=== PATIENT | male | born 1940 | race Caucasian/White ===

== ENCOUNTER 2017-11-15 18:52 | Inpatient (IN) | payer MEDICARE, OTHER ==
[~2017-11-15] VITALS: Ht 170.2 cm; Wt 74.7 kg
[~2017-11-15 18:52] MED LIST: ACET325T11 PO; Z.0.NO CURRENT MEDS
[2017-11-15 19:25] VITALS: BP 146/83; PULSE 97; RESP 16; TEMP 101.6; O2SAT 92
[2017-11-15 19:28] VITALS: RESP 20; O2SAT 96
--- NOTE | 2017-11-15 19:29 | PD ---
HPI Chief Complaint: Altered Mental Status Time Seen by Provider: 19:25 Travel History International Travel<30 days: No Contact w/Intl Traveler<30days: No Traveled to known affect area: No History of Present Illness HPI 77-year-old male patient from assisted with history of dementia, presents to the ER today because assisted stated that he is appearing more disoriented, generally weak. EMS noted that he was febrile with a fever 101 on the ambulance. He currently is disoriented, not answering questions. Arousable , and somewhat agitated nurse's getting IV. Modifying Factors: None Associated Signs & Symptoms: Disorientation, general weakness Risk Factors: Dementia, multiple medical issues PFSH Past Medical History Arthritis: No Asthma: No Autoimmune Disease: No Anxiety: Yes Depression: Yes Heart Rhythm Problems: No Cancer: No Cardiovascular Problems: No High Cholesterol: No Chemotherapy: No Chest Pain: No Congestive Heart Failure: No COPD: No Cerebrovascular Accident: No Diabetes: No Diminished Hearing: No Endocrine: No GERD: No Genitourinary: No Hiatal Hernia: No Hypertension: Yes Immune Disorder: No Kidney Stones: No Musculoskeletal: No Neurologic: Yes Psychiatric: Yes Reproductive: No Respiratory: No Migraines: No Radiation Therapy: No Renal Failure: No Seizures: No Sickle Cell Disease: No Sleep Apnea: No Thyroid Disease: No Ulcer: No Tetanus Vaccination: Unknown Influenza Vaccination: Yes Past Surgical History Surgical History: Unable to Obtain Abdominal Surgery: No AICD: No Arteriovenous Shunt: No Cardiac Surgery: No Ear Surgery: No Endocrine Surgery: No Eye Surgery: No Genitourinary Surgery: No Gynecologic Surgery: No Insulin Pump: No Joint Replacement: No Oral Surgery: No Pacemaker: No Thoracic Surgery: No Social History Alcohol Use: No Tobacco Use: No Substance Use: No Allergies-Medications (Allergen,Severity, Reaction): Coded Allergies: No Known Allergies (Unverified Adverse Reaction, Unknown, 11/15/17) Reported Meds & Prescriptions Reported Meds & Active Scripts Active Reported Glucagen Hypokit Inj Kit (Glucagon (Rdna) Inj Kit) 1 Mg Kit 1 Mg IM ONCE PRN Lexapro (Escitalopram Oxalate) 10 Mg Tab 10 Mg PO DAILY Namzaric (Memantine-Donepezil) 28-10 Mg Cap 1 Cap PO HS Potassium Chloride ER (Potassium Chloride) 10 Meq Cap 10 Meq PO DAILY Aspir-81 (Aspirin) 81 Mg Tabdr Vitamin D3 (Cholecalciferol) 1,000 Unit Tab 1,000 Units PO DAILY Loperamide (Loperamide HCl) 2 Mg Cap 2 Mg PO DIRECTED PRN One capsule after each loose stool. Not to exceed 8 capsules per day. Milk of Magnesia Liq (Magnesium Hydroxide) 400 Mg/5 Ml Susp 30 Ml PO ONCE Tylenol (Acetaminophen) 325 Mg Tab 325 Mg PO Q4H PRN Dulcolax Supp (Bisacodyl) 10 Mg Supp 10 Mg RECTAL DAILY PRN Synthroid (Levothyroxine Sodium) 25 Mcg Tab 25 Mcg PO DAILY Review of Systems ROS Limitations: Altered Mental Status Physical Exam Narrative GENERAL: Well-developed elderly white male patient who is arousable, but lethargic, disoriented. SKIN: Focused skin assessment warm/dry. HEAD: Atraumatic. Normocephalic. EYES: Pupils equal and round. No scleral icterus. No injection or drainage. ENT: No nasal bleeding or discharge. Mucous membranes pink and moist. EARS: Bilateral pinnae and external canals appear within normal limits. Bilateral tympanic membranes without erythema, dullness or perforation. I do not see any signs of fullness or discoloration of the mastoid areas. NECK: Trachea midline. No JVD. CARDIOVASCULAR: Regular rate and rhythm. No murmur appreciated. RESPIRATORY: No accessory muscle use. Clear to auscultation. Breath sounds equal bilaterally. GASTROINTESTINAL: Abdomen soft, non-tender, nondistended. Hepatic and splenic margins not palpable. MUSCULOSKELETAL: No obvious deformities. No clubbing. No cyanosis. No edema. NEUROLOGICAL: Awake and alert. Face is symmetrical. Not following commands. Appears to be able to move all 4 extremities. PSYCHIATRIC: Disoriented; insight and judgment poor. Data Data Last Documented VS Vital Signs Date Time Temp Pulse Resp B/P (MAP) Pulse Ox O2 Delivery O2 Flow Rate FiO2 11/15/17 19:28 20 96 Nasal Cannula 2.00 11/15/17 19:25 101.6 97 146/83 (104) Orders Orders Sepsis Workup Initiated (11/15/17 ) Electrocardiogram (11/15/17 19:25) Complete Blood Count With Diff (11/15/17 19:25) Comprehensive Metabolic Panel (11/15/17 19:25) Lactic Acid Sepsis Protocol (11/15/17 19:25) Magnesium (Mg) (11/15/17 19:25) Lipase (11/15/17 19:25) Ckmb (Isoenzyme) Profile (11/15/17 19:25) Troponin I (11/15/17 19:25) Urinalysis - C+S If Indicated (11/15/17 19:25) Influenzae A/B Antigen (11/15/17 19:25) Blood Culture (11/15/17 19:25) Chest, Single Ap (11/15/17 19:25) Blood Glucose (11/15/17 19:25) Ecg Monitoring (11/15/17 19:25) Iv Access Insert/Monitor (11/15/17 19:25) Oximetry (11/15/17 19:25) Oxygen Administration (11/15/17 19:25) Ct Brain W/O Iv Contrast(Rout) (11/15/17 19:25) Urine Culture (11/15/17 19:35) Vancomycin Inj (Vancomycin Inj) (11/15/17 20:02) Piperacil-Tazo 4.5 Gm Premix (Zosyn 4.5 (11/15/17 20:02) Sodium Chlor 0.9% 1000 Ml Inj (Ns 1000 M (11/15/17 20:30) Labs Laboratory Tests Test 11/15/17 19:20 11/15/17 19:35 White Blood Count 9.5 TH/MM3 Red Blood Count 5.09 MIL/MM3 Hemoglobin 15.5 GM/DL Hematocrit 45.8 % Mean Corpuscular Volume 90.0 FL Mean Corpuscular Hemoglobin 30.5 PG Mean Corpuscular Hemoglobin Concent 33.9 % Red Cell Distribution Width 13.8 % Platelet Count 153 TH/MM3 Mean Platelet Volume 7.8 FL Neutrophils (%) (Auto) 90.1 % Lymphocytes (%) (Auto) 4.8 % Monocytes (%) (Auto) 4.7 % Eosinophils (%) (Auto) 0.0 % Basophils (%) (Auto) 0.4 % Neutrophils # (Auto) 8.6 TH/MM3 Lymphocytes # (Auto) 0.5 TH/MM3 Monocytes # (Auto) 0.4 TH/MM3 Eosinophils # (Auto) 0.0 TH/MM3 Basophils # (Auto) 0.0 TH/MM3 CBC Comment DIFF FINAL Differential Comment Blood Urea Nitrogen 22 MG/DL Creatinine 1.00 MG/DL Random Glucose 112 MG/DL Total Protein 7.1 GM/DL Albumin 3.5 GM/DL Calcium Level 8.4 MG/DL Magnesium Level 1.9 MG/DL Alkaline Phosphatase 107 U/L Aspartate Amino Transf (AST/SGOT) 20 U/L Alanine Aminotransferase (ALT/SGPT) 17 U/L Total Bilirubin 0.7 MG/DL Sodium Level 135 MEQ/L Potassium Level 3.7 MEQ/L Chloride Level 102 MEQ/L Carbon Dioxide Level 26.8 MEQ/L Anion Gap 6 MEQ/L Estimat Glomerular Filtration Rate 72 ML/MIN Lactic Acid Level 1.2 mmol/L Total Creatine Kinase 37 U/L Troponin I 0.02 NG/ML Lipase 53 U/L Urine Color YELLOW Urine Turbidity HAZY Urine pH 5.5 Urine Specific [place] 1.021 Urine Protein 30 mg/dL Urine Glucose (UA) NEG mg/dL Urine Ketones 40 mg/dL Urine Occult Blood MOD Urine Nitrite NEG Urine Bilirubin NEG Urine Urobilinogen LESS THAN 2.0 MG/DL Urine Leukocyte Esterase NEG Urine RBC 12 /hpf Urine WBC 3 /hpf Urine Squamous Epithelial Cells <1 /hpf Urine Bacteria OCC /hpf Urine Hyaline Casts 3 /lpf Urine Mucus FEW /lpf Microscopic Urinalysis Comment CATH-CULTURE IND MDM Medical Decision Making Medical Screen Exam Complete: Yes Emergency Medical Condition: Yes Medical Record Reviewed: Yes Interpretation(s) EKG shows normal sinus rhythm at a rate 90 bpm with no signs of acute ST-T changes. Laboratory Tests Test 11/15/17 19:20 11/15/17 19:35 Neutrophils (%) (Auto) 90.1 % (16.0-70.0) Lymphocytes (%) (Auto) 4.8 % (9.0-44.0) Neutrophils # (Auto) 8.6 TH/MM3 (1.8-7.7) Lymphocytes # (Auto) 0.5 TH/MM3 (1.0-4.8) Blood Urea Nitrogen 22 MG/DL (7-18) Random Glucose 112 MG/DL (74-106) Calcium Level 8.4 MG/DL (8.5-10.1) Sodium Level 135 MEQ/L (136-145) Estimat Glomerular Filtration Rate 72 ML/MIN (>89) Total Creatine Kinase 37 U/L (39-308) Lipase 53 U/L (73-393) Urine Turbidity HAZY (CLEAR) Urine Protein 30 mg/dL (NEG-TRACE) Urine Ketones 40 mg/dL (NEG) Urine Occult Blood MOD (NEG) Urine RBC 12 /hpf (0-3) Urine Bacteria OCC /hpf (NONE) Urine Mucus FEW /lpf (OCC) Last [address] 11/15/171924 Signed Impressions: Service Date/Time: Wednesday, November 15, 2017 19:47 - CONCLUSION: 1. No acute intracranial abnormality demonstrated. 2. Atrophy and chronic white matter changes. 3. Possible mastoiditis on the right in the proper clinical setting. Dayne Chen MD Chest X-Ray 11/15/171924 Signed Impressions: Service Date/Time: Wednesday, November 15, 2017 19:39 - CONCLUSION: No acute cardiopulmonary disease demonstrated. Tortuous, potentially aneurysmal thoracic aorta. Dayne Chen MD Differential Diagnosis Fevers, altered mental status: Sepsis versus pneumonia versus dehydration versus acute intracranial processes versus metabolic issues Narrative Course Chest x-ray did not show pneumonia. Influenza testing is negative. CT scan of the brain did not show any signs of acute cranial processes although they did note some fullness in the left mastoid. On evaluation, I do not see any signs of infection in that area. Empiric IV antibiotics were initiated after cultures were drawn. I do not see any significant skin lesions that could be causing sepsis. At this point, my plan would be to admit the patient for further evaluation and treatment. Case is discussed with Dr. Almendarez for admission. Diagnosis Primary Impression: Altered mental status Additional Impression: Sepsis Admitting Information Admitting Physician Requests: Admit Jake Walker MD Nov 15, 2017 19:29
[2017-11-15 19:54] LABS: AUTOMATED NEUTROPHIL # 8.6 TH/MM3 (1.8-7.7); BASOPHIL % 0.4 % (0.0-2.0); HEMATOCRIT 45.8 % (39.0-51.0); HEMOGLOBIN 15.5 GM/DL (13.0-17.0); LYMPH % 4.8 % (9.0-44.0); LYMPHOCYTE # 0.5 TH/MM3 (1.0-4.8); MEAN CORPUSCULAR HEMOGLOBIN 30.5 PG (27.0-34.0); MEAN CORPUSCULAR HGB CONC 33.9 % (32.0-36.0); MEAN PLATELET VOLUME 7.8 FL (7.0-11.0); MONO % 4.7 % (0.0-8.0); MONOCYTE # 0.4 TH/MM3 (0-0.9); NEUT % 90.1 % (16.0-70.0); PLATELET COUNT 153 TH/MM3 (150-450); RED BLOOD COUNT 5.09 MIL/MM3 (4.50-5.90); RED CELL DISTRIBUTION WIDTH 13.8 % (11.6-17.2); WHITE BLOOD COUNT 9.5 TH/MM3 (4.0-11.0)
--- NOTE | 2017-11-15 19:55 | RADRPT ---
EXAM DATE/TIME: 11/15/2017 19:39 [facility] COMPARISON: Report only CHEST SINGLE AP, March 09, 2013, 15:32. INDICATIONS : Fever MEDICAL HISTORY : None. SURGICAL HISTORY : None. ENCOUNTER: Initial ACUITY: 1 day PAIN SCORE: Non-responsive. LOCATION: chest FINDINGS: No infiltrate, effusion or pneumothorax. Heart size upper limits of normal. Very tortuous thoracic ao rta noted, potentially mildly aneurysmal. CONCLUSION: No acute cardiopulmonary disease demonstrated. Tortuous, potentially aneurysmal thoracic aorta. Dayne Chen MD on November 15, 2017 at 19:51 Board Certified Radiologist. This report was verified electronically.
[2017-11-15 19:56] LABS: BACTERIA, URINE OCC /hpf; BILIRUBIN, URINE NEG (NEG); BLOOD, URINE MOD (NEG); GLUCOSE,URINE NEG (NEG); HYALINE CAST, URINE 3 /lpf (RARE); KETONE, URINE 40 mg/dL (NEG); MUCUS URINE FEW /lpf (OCC); NITRITE,URINE NEG (NEG); PH, URINE 5.5 (5.0-8.5); SQUAMOUS EPITHELIAL CELL URINE <1 /hpf (0-5); URINE COLOR YELLOW (YELLW/STRAW); URINE LEUKOCYTE ESTERASE NEG (NEG)
[2017-11-15] MEDS ORDERED: VANCOMYCIN INJ 1,000 MG in SODIUM CHLOR 0.9% 250 ML INJ 250 ML IV STA (20:02)
[2017-11-15] MEDS ORDERED: PIPERACIL-TAZO 4.5 GM PREMIX 100 ML IV STA (20:02)
[2017-11-15 20:05] LABS: ALBUMIN 3.5 GM/DL (3.4-5.0); AST (GOT) 20 U/L (15-37); BICARBONATE 26.8 MEQ/L (21.0-32.0); BLOOD UREA NITROGEN 22 MG/DL (7-18); CALCIUM 8.4 MG/DL (8.5-10.1); CHLORIDE 102 MEQ/L (98-107); GLOMERULAR FILTRATION RATE 72 ML/MIN (>89); GLUCOSE,RANDOM 112 MG/DL (74-106); LIPASE 53 U/L (73-393); MAGNESIUM 1.9 MG/DL (1.5-2.5); SODIUM (NA) 135 MEQ/L (136-145)
--- NOTE | 2017-11-15 20:05 | RADRPT ---
EXAM DATE/TIME: 11/15/2017 19:47 [facility] COMPARISON: Report only CT BRAIN W/O CONTRAST, March 09, 2013, 16:34. INDICATIONS : Altered mental status. RADIATION DOSE: 56.35 CTDIvol (mGy) MEDICAL HISTORY : Hypertension. SURGICAL HISTORY : None. ENCOUNTER: Initial ACUITY: 1 day PAIN SCALE: Non-responsive LOCATION: Bilateral head TECHNIQUE: Multiple contiguous axial images were obtained of the head. Using automated exposure control and adj ustment of the mA and/or kV according to patient size, radiation dose was kept as low as reasonably a chievable to obtain optimal diagnostic quality images. DICOM format image data is available electro nically for review and comparison. FINDINGS: CEREBRUM: The ventricles are normal for age. No evidence of midline shift, mass lesion, hemorrhage or acute in farction. No extra-axial fluid collections are seen. Atrophy and chronic white matter changes are no pavithra. POSTERIOR FOSSA: The cerebellum and brainstem are intact. The 4th ventricle is midline. The cerebellopontine angle i s unremarkable. EXTRACRANIAL: Opacified right mastoid air cells. SKULL: The calvaria is intact. No evidence of skull fracture. CONCLUSION: 1. No acute intracranial abnormality demonstrated. 2. Atrophy and chronic white matter changes. 3. Possible mastoiditis on the right in the proper clinical setting. Dayne Chen MD on November 15, 2017 at 20:02 Board Certified Radiologist. This report was verified electronically.
[2017-11-15 20:06] LABS: ALT (GPT) 17 U/L (12-78)
[2017-11-15 20:10] LABS: ALKALINE PHOSPHATASE 107 U/L (45-117); TOTAL BILIRUBIN ADULT 0.7 MG/DL (0.2-1.0); TOTAL PROTEIN 7.1 GM/DL (6.4-8.2); TROPONIN I 0.02 NG/ML (0.02-0.05)
[2017-11-15] MEDS ORDERED: SODIUM CHLOR 0.9% 1000 ML INJ 1,000 ML IV ONE (20:30)
[2017-11-15] MEDS ORDERED: ASPI81TA81 (20:38)
[2017-11-15] MEDS ORDERED: GLUCINJ IM (20:38)
[2017-11-15] MEDS ORDERED: SYNT25TA PO (20:38)
[2017-11-15] MEDS ORDERED: LOPE2CAP PO (20:38)
[2017-11-15] MEDS ORDERED: VITA100018 PO (20:38)
[2017-11-15] MEDS ORDERED: MEMA1CAP2 PO (20:38)
[2017-11-15] MEDS ORDERED: POTA10CA PO (20:38)
[2017-11-15] MEDS ORDERED: DULC10SU3 RECTAL (20:38)
[2017-11-15] MEDS ORDERED: LEXA10TA PO (20:38)
[2017-11-15] MEDS ORDERED: MILKSUS PO (20:38)
[2017-11-15] MEDS ORDERED: TYLE325T PO (20:38)
[2017-11-15] MEDS ORDERED: ACETAMINOPHEN 325 MG TAB PO PRN (20:45)
[2017-11-15] MEDS ORDERED: MAGNESIUM HYDROXIDE SUSP 30 ML CUP PO PRN (20:45)
[2017-11-15] MEDS ORDERED: SENNOSIDES 8.6 MG TAB PO PRN (20:45)
[2017-11-15] MEDS ORDERED: BISACODYL 10 MG SUPP RECTAL PRN (20:45)
[2017-11-15] MEDS ORDERED: SODIUM CHLORIDE 0.9% FLUSH 10 ML FLUSH IV FLUSH PRN (20:45)
[2017-11-15] MEDS ORDERED: LACTULOSE SYRUP 20 GM/30 ML CUP PO PRN (20:45)
[2017-11-15] MEDS ORDERED: ONDANSETRON HCL 4 MG/2 ML VIAL IVP PRN (20:45)
[2017-11-15] MEDS ORDERED: ACETAMINOPHEN/HYDROcodone 325 MG/5 MG TAB PO PRN (20:45)
[2017-11-15] MEDS ORDERED: ACETAMINOPHEN/HYDROcodone 325 MG/10 MG TAB PO PRN (20:45)
[2017-11-15] MEDS ORDERED: Vancomycin Consult Pharmacy 1 EA OTHER SCH (20:45)
--- NOTE | 2017-11-15 20:45 | HHI.HP ---
[facility] Unknown Admission Diagnosis sepsis/altered mental status Diagnoses: (1) Sepsis Diagnosis: Principal (2) UTI (urinary tract infection) Diagnosis: Principal (3) Encephalopathy Diagnosis: Principal (4) Dementia Diagnosis: Principal (5) DNR (do not resuscitate) Travel History International Travel<30 Days: No Contact w/Intl Traveler <30 Da: No Traveled to Known Affected Are: No History of Present Illness This is a 78-year-old DNR male with a PMH of Anxiety, Depression, HTN and Dementia who was sent to the ER from SNF secondary to AMS and confusion. Pt unable to provide history due to dementia/AMS, history obtained from records. Per report, pt noted to have Temp 101 by EMS. On arrival, BP 146/83, HR 97, O2 sat 92% on RA, Temp 101.6. CBC unremarkable except for elevated neutrophil count. Chemistry at baseline. Lactic Acid normal. UA positive for bacteriuria and hematuria. CXR with no acute findings. CT Head with no acute intracranial abnormalities, possible mastoiditis. S/p Vanc/Zosyn and Blood Cultures in ER. Review of Systems Except as stated in HPI: all other systems reviewed are Neg ROS: Unable to obtain secondary to AMS and dementia. Past Family Social History Past Medical History PMH: Anxiety, Depression, HTN and Dementia Past Surgical History PAST SURGICAL HISTORY: Unknown Allergies: Coded Allergies: No Known Allergies (Unverified Allergy, Unknown, 11/15/17) Family History PAST FAMILY HISTORY: Reviewed. No h/o DM or CAD Social History PAST SOCIAL HISTORY: Negative for alcohol, tobacco or drugs. Physical Exam Vital Signs Vital Signs Date Time Temp Pulse Resp B/P (MAP) Pulse Ox O2 Delivery O2 Flow Rate FiO2 11/15/17 19:28 20 96 Nasal Cannula 2.00 11/15/17 19:28 92 Room Air 11/15/17 19:25 101.6 97 16 146/83 (104) 92 11/15/17 19:22 16 92 Room Air Physical Exam PE: GENERAL: Elderly white male in no acute distress. Lethargic, confused. Opens eyes to name HEENT: PERRMYLA, EOMI. No scleral icterus or conjunctival pallor. No lid lag or facial droop. CARDIOVASCULAR: Regular rate and rhythm. No obvious murmurs to auscultation. No chest tenderness to palpation. RESPIRATORY: No obvious rhonchi or wheezing. Clear to auscultation. Breath sounds equal bilaterally. GASTROINTESTINAL: Abdomen soft, non-tender, nondistended. BS normal. MUSCULOSKELETAL: Extremities without clubbing, cyanosis, or edema. No obvious deformities. NEUROLOGICAL: Lethargic, confused. No focal neurologic deficits. Moving both upper and lower extremities spontaneously. Laboratory Laboratory Tests Test 11/15/17 19:20 11/15/17 19:35 White Blood Count 9.5 Red Blood Count 5.09 Hemoglobin 15.5 Hematocrit 45.8 Mean Corpuscular Volume 90.0 Mean Corpuscular Hemoglobin 30.5 Mean Corpuscular Hemoglobin Concent 33.9 Red Cell Distribution Width 13.8 Platelet Count 153 Mean Platelet Volume 7.8 Neutrophils (%) (Auto) 90.1 Lymphocytes (%) (Auto) 4.8 Monocytes (%) (Auto) 4.7 Eosinophils (%) (Auto) 0.0 Basophils (%) (Auto) 0.4 Neutrophils # (Auto) 8.6 Lymphocytes # (Auto) 0.5 Monocytes # (Auto) 0.4 Eosinophils # (Auto) 0.0 Basophils # (Auto) 0.0 CBC Comment DIFF FINAL Differential Comment Blood Urea Nitrogen 22 Creatinine 1.00 Random Glucose 112 Total Protein 7.1 Albumin 3.5 Calcium Level 8.4 Magnesium Level 1.9 Alkaline Phosphatase 107 Aspartate Amino Transf (AST/SGOT) 20 Alanine Aminotransferase (ALT/SGPT) 17 Total Bilirubin 0.7 Sodium Level 135 Potassium Level 3.7 Chloride Level 102 Carbon Dioxide Level 26.8 Anion Gap 6 Estimat Glomerular Filtration Rate 72 Lactic Acid Level 1.2 Total Creatine Kinase 37 Troponin I 0.02 Lipase 53 Urine Color YELLOW Urine Turbidity HAZY Urine pH 5.5 Urine Specific [place] 1.021 Urine Protein 30 Urine Glucose (UA) NEG Urine Ketones 40 Urine Occult Blood MOD Urine Nitrite NEG Urine Bilirubin NEG Urine Urobilinogen LESS THAN 2.0 Urine Leukocyte Esterase NEG Urine RBC 12 Urine WBC 3 Urine Squamous Epithelial Cells <1 Urine Bacteria OCC Urine Hyaline Casts 3 Urine Mucus FEW Microscopic Urinalysis Comment CATH-CULTURE IND Date/Time Source Procedure Growth Status 11/15/17 19:30 Blood Peripheral Aerobic Blood Culture Pending Received 11/15/17 19:30 Blood Peripheral Anaerobic Blood Culture Pending Received 11/15/17 19:30 Nasal Washing Influenza Types A,B Antigen (DEMIAN) - Final NEGATIVE FOR FLU A AND B ANTIGEN.... Complete 11/15/17 19:35 Urine Catheterized Urine Urine Culture Pending Received Result Diagram: 11/15/17191911/15/171919 Caprini VTE Risk Assessment Caprini VTE Risk Assessment: No/Low Risk (score <= 1) Caprini Risk Assessment Model Point Value = 1 Point Value = 2 Point Value = 3 Point Value = 5 Age 41-60 Minor surgery BMI > 25 kg/m2 Swollen legs Varicose veins or History of unexplained or recurrent spontaneous Oral contraceptives or hormone replacement Sepsis (< 1 month) Serious lung disease, including pneumonia (< 1 month) Abnormal pulmonary function Acute myocardial infarction Congestive heart failure (< 1 month) History of inflammatory bowel disease Medical patient at bed rest Age 61-74 Arthroscopic surgery Major open surgery (> 45 min) Laparoscopic surgery (> 45 min) Malignancy Confined to bed (> 72 hours) Immobilizing plaster cast Central venous access Age >= 75 History of VTE Family history of VTE Factor V Leiden Prothrombin [id number] Lupus anticoagulant Anticardiolipin antibodies Elevated serum homocysteine Heparin-induced thrombocytopenia Other congenital or acquired thrombophilia Stroke (< 1 month) Elective arthroplasty Hip, pelvis, or leg fracture Acute spinal cord injury (< 1 month) Prophylaxis Regimen Total Risk Factor Score Risk Level Prophylaxis Regimen 0-1 Low Early ambulation 2 Moderate Order ONE of the following: *Sequential Compression Device (SCD) *Heparin 5000 units SQ BID 3-4 Higher Order ONE of the following medications: *Heparin 5000 units SQ TID *Enoxaparin/Lovenox 40 mg SQ daily (WT < 150 kg, CrCl > 30 mL/min) *Enoxaparin/Lovenox 30 mg SQ daily (WT < 150 kg, CrCl > 10-29 mL/min) *Enoxaparin/Lovenox 30 mg SQ BID (WT < 150 kg, CrCl > 30 mL/min) AND/OR *Sequential Compression Device (SCD) 5 or more Highest Order ONE of the following medications: *Heparin 5000 units SQ TID (Preferred with Epidurals) *Enoxaparin/Lovenox 40 mg SQ daily (WT < 150 kg, CrCl > 30 mL/min) *Enoxaparin/Lovenox 30 mg SQ daily (WT < 150 kg, CrCl > 10-29 mL/min) *Enoxaparin/Lovenox 30 mg SQ BID (WT < 150 kg, CrCl > 30 mL/min) AND *Sequential Compression Device (SCD) Assessment and Plan Problem List: (1) Sepsis ICD Code: A41.9 - Sepsis, unspecified organism Status: Acute (2) UTI (urinary tract infection) ICD Code: N39.0 - Urinary tract infection, site not specified (3) Dementia ICD Code: F03.90 - Unspecified dementia without behavioral disturbance (4) Encephalopathy ICD Code: G93.40 - Encephalopathy, unspecified (5) DNR (do not resuscitate) ICD Code: Z66 - Do not resuscitate Assessment and Plan A/P: 1. Sepsis: Temp 101.6, HR 97, Source-UTI. S/p Vanc/Zosyn, Blood Cultures in ER. Continue w/ IV Abx, follow up cultures, IVF for hydration. Lactic Acid normal. CXR w/ no acute findings, images reviewed by me. 2. UTI: U/a w/ mild bacteriuria/hematuria, presumably source of infection. Continue w/ IV Abx, follow urine/blood cultures. 3. Encephalopathy: Likely combination of underlying dementia w/ acute infection/sepsis. CT Head w/ no acute intracranial findings, images reviewed by me. Neuro Checks. 4. Dementia: Resume home Lexapro, Namzaric. Neuro checks as above. PT for eval/tx. 5. DNR: Code Status confirmed and in chart, order placed. 6. DVT Prophylaxis: SCD/Teds. 7. Social work for d/c planning as needed. 8. Case discussed w/ ER physician, labs/records/imaging reviewed by me. Physician Certification 2 Midnight Certification Type: Admission for Inpatient Services Order for Inpatient Services The services are ordered in accordance with Medicare regulations or non- Medicare payer requirements, as applicable. In the case of services not specified as inpatient-only, they are appropriately provided as inpatient services in accordance with the 2-midnight benchmark. Estimated LOS (days): 2 days is the estimated time the patient will need to remain in the hospital, assuming treatment plan goals are met and no additional complications. Post-Hospital Plan: Not yet determined Sanaz Almendarez MD Nov 15, 2017 20:44
[2017-11-15] MEDS ORDERED: NON-FORMULARY DRUG (Memantine-Donepezil (Namzaric) 1 CAP) PO SCH (21:00)
[2017-11-15] MEDS: SODIUM CHLORIDE 0.9% FLUSH 10 ML FLUSH IV FLUSH SCH (22:00)
[2017-11-15] MEDS: DOCUSATE SODIUM 50 MG/SENNA 8.6 MG TAB PO SCH (22:00)
[2017-11-15] MEDS: SODIUM CHLOR 0.9% 1000 ML INJ 1,000 ML IV SCH (22:01)
[2017-11-16] VITALS: BP 133/93; PULSE 80; RESP 18; TEMP 98; O2SAT 97
[2017-11-16] MEDS: LEVOTHYROXINE SODIUM 25 MCG TAB PO SCH (06:12)
[2017-11-16] MEDS: SODIUM CHLOR 0.9% 1000 ML INJ 1,000 ML IV SCH ×2 (06:13→18:15)
[2017-11-16 07:35] LABS: AUTOMATED NEUTROPHIL # 4.7 TH/MM3 (1.8-7.7); BASOPHIL % 0.3 % (0.0-2.0); EOSINOPHIL % 0.2 % (0.0-4.0); HEMATOCRIT 42.3 % (39.0-51.0); HEMOGLOBIN 11.9 GM/DL (13.0-17.0); LYMPH % 10.7 % (9.0-44.0); LYMPHOCYTE # 0.6 TH/MM3 (1.0-4.8); MEAN CELL VOLUME 90.9 FL (80.0-100.0); MEAN CORPUSCULAR HEMOGLOBIN 25.5 PG (27.0-34.0); MONO % 7.4 % (0.0-8.0); MONOCYTE # 0.4 TH/MM3 (0-0.9); NEUT % 81.4 % (16.0-70.0); PLATELET COUNT 98 TH/MM3 (150-450); RED BLOOD COUNT 4.66 MIL/MM3 (4.50-5.90); RED CELL DISTRIBUTION WIDTH 13.6 % (11.6-17.2); WHITE BLOOD COUNT 5.8 TH/MM3 (4.0-11.0)
[2017-11-16 08:00] VITALS: BP 119/68; PULSE 85; RESP 18; TEMP 99; O2SAT 90
[2017-11-16] MEDS: VANCOMYCIN 1,000 MG/NS 250 ML IV SCH ×4 (08:00→23:12)
[2017-11-16] MEDS: CEFEPIME INJ 1,000 MG in SODIUM CHLORIDE 0.9% INJ 100 ML IV SCH ×2 (09:21→22:14)
[2017-11-16] MEDS: DOCUSATE SODIUM 50 MG/SENNA 8.6 MG TAB PO SCH ×2 (09:21→22:14)
[2017-11-16] MEDS: ESCITALOPRAM OXALATE 10 MG TAB PO SCH (09:21)
[2017-11-16] MEDS: SODIUM CHLORIDE 0.9% FLUSH 10 ML FLUSH IV FLUSH SCH ×2 (09:22→21:00)
[2017-11-16 09:46] LABS: BANDS 6 % (0-6); LYMPHOCYTES 6 % (9-44); MONOCYTES 7 % (0-8); POLYS (SEG NEUTROPHILS) 81 % (16-70)
[2017-11-16 10:37] LABS: ALT (GPT) 15 U/L (12-78); AST (GOT) 22 U/L (15-37); BLOOD UREA NITROGEN 23 MG/DL (7-18); CALCIUM 7.9 MG/DL (8.5-10.1); CHLORIDE 103 MEQ/L (98-107); CREATININE 0.91 MG/DL (0.60-1.30); GLOMERULAR FILTRATION RATE 81 ML/MIN (>89); GLUCOSE,RANDOM 90 MG/DL (74-106); SODIUM (NA) 138 MEQ/L (136-145)
[2017-11-16 10:40] LABS: ALKALINE PHOSPHATASE 89 U/L (45-117); TOTAL BILIRUBIN ADULT 0.8 MG/DL (0.2-1.0); TOTAL PROTEIN 6.7 GM/DL (6.4-8.2)
[2017-11-16 12:00] VITALS: BP 105/61; PULSE 79; RESP 18; TEMP 99; O2SAT 91
[2017-11-16 16:00] VITALS: BP 118/64; PULSE 76; RESP 18; TEMP 98.9; O2SAT 92
--- NOTE | 2017-11-16 17:11 | HHI.PR ---
Subjective Remarks Patient has no complaints. Awake. Denies cp/sob. afebrile. Objective Vitals Vital Signs Date Time Temp Pulse Resp B/P (MAP) Pulse Ox O2 Delivery O2 Flow Rate FiO2 11/16/17 12:00 99.0 79 18 105/61 (76) 91 11/16/17 08:00 99.0 85 18 119/68 (85) 90 11/16/17 00:00 98.0 80 18 133/93 (106) 97 11/15/17 22:20 Nasal Cannula 3.00 11/15/17 19:28 20 96 Nasal Cannula 2.00 11/15/17 19:28 92 Room Air 11/15/17 19:25 101.6 97 16 146/83 (104) 92 11/15/17 19:22 16 92 Room Air I/O 11/15/17 11/15/17 11/15/17 11/16/17 11/16/17 11/16/17 06:59 14:59 22:59 06:59 14:59 22:59 Intake Total 1120 ml Output Total 300 ml Balance 820 ml Intake Oral 120 ml IV Total 1000 ml Output Urine Total 300 ml # Bowel Movements 0 Result Diagram: 11/16/17 0646 11/16/17 0945 Imaging Last Impressions Head CT 11/15/171924 Signed Impressions: Service Date/Time: Wednesday, November 15, 2017 19:47 - CONCLUSION: 1. No acute intracranial abnormality demonstrated. 2. Atrophy and chronic white matter changes. 3. Possible mastoiditis on the right in the proper clinical setting. Dayne Chen MD Chest X-Ray 11/15/171924 Signed Impressions: Service Date/Time: Wednesday, November 15, 2017 19:39 - CONCLUSION: No acute cardiopulmonary disease demonstrated. Tortuous, potentially aneurysmal thoracic aorta. Dayne Chen MD Objective Remarks GENERAL: Elderly white male in no acute distress. Lethargic, confused. Opens eyes to name HEENT: PERRMYLA, EOMI. No scleral icterus or conjunctival pallor. No lid lag or facial droop. CARDIOVASCULAR: Regular rate and rhythm. No obvious murmurs to auscultation. No chest tenderness to palpation. RESPIRATORY: No obvious rhonchi or wheezing. Clear to auscultation. Breath sounds equal bilaterally. GASTROINTESTINAL: Abdomen soft, non-tender, nondistended. BS normal. MUSCULOSKELETAL: Extremities without clubbing, cyanosis, or edema. No obvious deformities. NEUROLOGICAL: awake and alert x2. No focal neurologic deficits. Moving both upper and lower extremities spontaneously. Medications and IVs Current Medications Medications (Trade) Dose Ordered Sig/Marcella Route Start Time Stop Time Status Last Admin Pharmacy Profile Note 0 ml @ 0 mls/hr UNSCH OTHER 11/15/17 20:45 Cefepime HCl 1000 mg/Sodium Chloride 100 ml @ 200 mls/hr Q12H IV 11/16/17 09:00 11/16/17 09:21 Sodium Chloride 1,000 ml @ 100 mls/hr Q10H IV 11/15/17 21:00 11/16/17 06:13 (NS Flush) 2 ml UNSCH PRN IV FLUSH 11/15/17 20:45 (NS Flush) 2 ml BID IV FLUSH 11/15/17 21:00 11/16/17 09:22 (Zofran Inj) 4 mg Q6H PRN IVP 11/15/17 20:45 (Tylenol) 650 mg Q6H PRN PO 11/15/17 20:45 ([place] 5-325 Mg) 1 tab Q4H PRN PO 11/15/17 20:45 ([place] 10-325 Mg) 1 tab Q4H PRN PO 11/15/17 20:45 (Irma-Colace) 1 tab BID PO 11/15/17 21:00 11/16/17 09:21 (Milk Of Magnesia Liq) 30 ml Q12H PRN PO 11/15/17 20:45 (Senokot) 17.2 mg Q12H PRN PO 11/15/17 20:45 (Dulcolax Supp) 10 mg DAILY PRN RECTAL 11/15/17 20:45 (Lactulose Liq) 30 ml DAILY PRN PO 11/15/17 20:45 (Lexapro) 10 mg DAILY PO 11/16/17 09:00 11/16/17 09:21 (Synthroid) 25 mcg DAILY@0600 PO 11/16/17 06:00 11/16/17 06:12 Patient Own Medication PT OWN MED: NAMZA... HS PO 11/16/17 21:00 Future Hold Vancomycin HCl 1000 mg/Sodium Chloride 250 ml @ 250 mls/hr Q12H IV 11/16/17 08:00 11/16/17 08:00 Miscellaneous Information SPECIFIC LAB TO BE DRAWN:[facility] DATE TO BE DRLora. ONCE ONCE .XX 11/17/17 07:45 11/17/17 07:46 Urinary Catheter: Yes Assessment to: Remove A/P Problem List: (1) Sepsis ICD Code: A41.9 - Sepsis, unspecified organism Status: Acute (2) UTI (urinary tract infection) ICD Code: N39.0 - Urinary tract infection, site not specified (3) Dementia ICD Code: F03.90 - Unspecified dementia without behavioral disturbance (4) Encephalopathy ICD Code: G93.40 - Encephalopathy, unspecified (5) DNR (do not resuscitate) ICD Code: Z66 - Do not resuscitate Assessment and Plan 1. Sepsis: Temp 101.6, HR 97, Source-UTI. S/p Vanc/Zosyn, Blood Cultures in ER. Continue w/ IV Abx, follow up cultures, IVF for hydration. Lactic Acid normal. CXR w/ no acute findings, images reviewed by me. 11/16 sepsis clinically improving with improving fever, resolving tachycardia. Continue IV cefepime, discontinue vancomycin IV. 2. UTI: U/a w/ mild bacteriuria/hematuria, presumably source of infection. Continue w/ IV Abx, follow urine/blood cultures. 11/16 blood cultures negative 1, urine cultures no growth in 24 hours. Discontinue IV vancomycin and continue IV cefepime. 3. Encephalopathy: Likely combination of underlying dementia w/ acute infection/sepsis. CT Head w/ no acute intracranial findings, images reviewed by me. Neuro Checks. 11/16 encephalopathy improving. The patient is awake and answer questions. The patient however is oriented to place and time not to person. Continue to monitor neuro checks. 4. Dementia: Resume home Lexapro, Namzaric. Neuro checks as above. PT for eval/tx. 5. DNR: Code Status confirmed and in chart, order placed. 6. DVT Prophylaxis: SCD/Teds. 7. Social work for d/c planning as needed. Remove Carson catheter. Discharge Planning Possible discharge in a.m. pending clinical improvement. Сергей Goldberg MD Nov 16, 2017 17:11
--- NOTE | 2017-11-16 18:35 | EKG ---
Date Performed: 11/15/2017 Time Performed: 19:28:03 PTAGE: 77 years EKG: Sinus rhythm WITH OCCASIONAL SUPRAVENTRICULAR PREMATURE COMPLEXES Light R wave transition. LEFT ANTERIOR FASCICUL AR BLOCK ABNORMAL ECG PREVIOUS TRACING : 03/09/2013 14.50 DOCTOR: Yunier Nieves Interpretating Date/Time 11/16/2017 18:34:45
[2017-11-16 20:00] VITALS: BP 112/66; PULSE 66; PULSE 72; RESP 16; TEMP 98.5; O2SAT 92
[2017-11-16] MEDS ORDERED: [UNRECOGNIZED DRUG - MIXTURE] PO SCH (21:00)
[2017-11-17] VITALS: BP 109/72; PULSE 66; PULSE 67; RESP 16; TEMP 96.8; O2SAT 92
[2017-11-17 04:00] VITALS: BP 131/84; PULSE 84; RESP 16; TEMP 98.8; O2SAT 92
[2017-11-17 06:29] LABS: HEMATOCRIT 41.8 % (39.0-51.0); HEMOGLOBIN 14.3 GM/DL (13.0-17.0); MEAN CELL VOLUME 89.5 FL (80.0-100.0); MEAN CORPUSCULAR HEMOGLOBIN 30.6 PG (27.0-34.0); MEAN CORPUSCULAR HGB CONC 34.2 % (32.0-36.0); MEAN PLATELET VOLUME 7.8 FL (7.0-11.0); PLATELET COUNT 123 TH/MM3 (150-450); RED BLOOD COUNT 4.68 MIL/MM3 (4.50-5.90); RED CELL DISTRIBUTION WIDTH 13.5 % (11.6-17.2); WHITE BLOOD COUNT 6.4 TH/MM3 (4.0-11.0)
[2017-11-17] MEDS: LEVOTHYROXINE SODIUM 25 MCG TAB PO SCH (06:31)
[2017-11-17] MEDS: SODIUM CHLOR 0.9% 1000 ML INJ 1,000 ML IV SCH (06:32)
[2017-11-17 06:58] LABS: CALCIUM 7.6 MG/DL (8.5-10.1); CREATININE 0.79 MG/DL (0.60-1.30)
[2017-11-17] MEDS ORDERED: PHARMACY ORDERED LAB ONE (07:45)
[2017-11-17 08:00] VITALS: BP 128/83; PULSE 87; RESP 17; TEMP 96.9; O2SAT 93
[2017-11-17] MEDS: SODIUM CHLORIDE 0.9% FLUSH 10 ML FLUSH IV FLUSH SCH (08:12)
[2017-11-17] MEDS: ESCITALOPRAM OXALATE 10 MG TAB PO SCH (08:42)
[2017-11-17] MEDS: DOCUSATE SODIUM 50 MG/SENNA 8.6 MG TAB PO SCH (08:42)
[2017-11-17] MEDS: CEFEPIME INJ 1,000 MG in SODIUM CHLORIDE 0.9% INJ 100 ML IV SCH (08:42)
[2017-11-17] MEDS: VANCOMYCIN 1,000 MG/NS 250 ML IV SCH ×2 (08:45)
[2017-11-17] MEDS ORDERED: POTASSIUM CHLORIDE 10 MEQ CONTROLLED RELEASE TAB PO ONE (09:15)
[2017-11-17] MEDS ORDERED: POTASSIUM CHLORIDE 20 MEQ CONTROLLED RELEASE TAB PO ONE (09:15)
--- NOTE | 2017-11-17 11:18 | HHI.PR ---
Subjective Remarks Patient denies any complaints Denies fevers or chills. Denies cp/sob. Objective Vitals Vital Signs Date Time Temp Pulse Resp B/P (MAP) Pulse Ox O2 Delivery O2 Flow Rate FiO2 11/17/17 08:00 96.9 87 17 128/83 (98) 93 11/17/17 04:00 98.8 84 16 131/84 (100) 92 11/17/17 00:00 96.8 66 16 109/72 (84) 92 11/17/17 00:00 67 11/16/17 20:00 98.5 72 16 112/66 (81) 92 11/16/17 20:00 66 11/16/17 16:00 98.9 76 18 118/64 (82) 92 11/16/17 12:00 99.0 79 18 105/61 (76) 91 I/O 11/16/17 11/16/17 11/16/17 11/17/17 11/17/17 11/17/17 07:00 15:00 23:00 07:00 15:00 23:00 Intake Total 1120 ml 1180 ml 1250 ml Output Total 300 ml 750 ml 650 ml Balance 820 ml 430 ml 600 ml Intake Oral 120 ml 1080 ml IV Total 1000 ml 100 ml 1250 ml Output Urine Total 300 ml 750 ml 650 ml # Bowel Movements 0 2 1 Result Diagram: 11/17/17 0534 11/17/17 0534 Imaging Last Impressions Head CT 11/15/171924 Signed Impressions: Service Date/Time: Wednesday, November 15, 2017 19:47 - CONCLUSION: 1. No acute intracranial abnormality demonstrated. 2. Atrophy and chronic white matter changes. 3. Possible mastoiditis on the right in the proper clinical setting. Dayne Chen MD Chest X-Ray 11/15/171924 Signed Impressions: Service Date/Time: Wednesday, November 15, 2017 19:39 - CONCLUSION: No acute cardiopulmonary disease demonstrated. Tortuous, potentially aneurysmal thoracic aorta. Dayne Chen MD Objective Remarks GENERAL: Elderly white male in no acute distress. Lethargic, confused. Opens eyes to name HEENT: PERRLA, EOMI. No scleral icterus or conjunctival pallor. No lid lag or facial droop. CARDIOVASCULAR: Regular rate and rhythm. No obvious murmurs to auscultation. No chest tenderness to palpation. RESPIRATORY: No obvious rhonchi or wheezing. Clear to auscultation. Breath sounds equal bilaterally. GASTROINTESTINAL: Abdomen soft, non-tender, nondistended. BS normal. MUSCULOSKELETAL: Extremities without clubbing, cyanosis, or edema. No obvious deformities. NEUROLOGICAL: awake and alert x2. No focal neurologic deficits. Moving both upper and lower extremities spontaneously. Medications and IVs Current Medications Medications (Trade) Dose Ordered Sig/Marcella Route Start Time Stop Time Status Last Admin Cefepime HCl 1000 mg/Sodium Chloride 100 ml @ 200 mls/hr Q12H IV 11/16/17 09:00 11/17/17 08:42 (NS Flush) 2 ml UNSCH PRN IV FLUSH 11/15/17 20:45 (NS Flush) 2 ml BID IV FLUSH 11/15/17 21:00 11/16/17 09:22 (Zofran Inj) 4 mg Q6H PRN IVP 11/15/17 20:45 (Tylenol) 650 mg Q6H PRN PO 11/15/17 20:45 ([place] 5-325 Mg) 1 tab Q4H PRN PO 11/15/17 20:45 ([place] 10-325 Mg) 1 tab Q4H PRN PO 11/15/17 20:45 (Irma-Colace) 1 tab BID PO 11/15/17 21:00 11/17/17 08:42 (Milk Of Magnesia Liq) 30 ml Q12H PRN PO 11/15/17 20:45 (Senokot) 17.2 mg Q12H PRN PO 11/15/17 20:45 (Dulcolax Supp) 10 mg DAILY PRN RECTAL 11/15/17 20:45 (Lactulose Liq) 30 ml DAILY PRN PO 11/15/17 20:45 (Lexapro) 10 mg DAILY PO 11/16/17 09:00 11/17/17 08:42 (Synthroid) 25 mcg DAILY@0600 PO 11/16/17 06:00 11/17/17 06:31 Patient Own Medication PT OWN MED: NAMZA... HS PO 11/16/17 21:00 Future Hold A/P Problem List: (1) Sepsis ICD Code: A41.9 - Sepsis, unspecified organism Status: Resolved (2) UTI (urinary tract infection) ICD Code: N39.0 - Urinary tract infection, site not specified Status: Acute (3) Dementia ICD Code: F03.90 - Unspecified dementia without behavioral disturbance Status: Chronic (4) Encephalopathy ICD Code: G93.40 - Encephalopathy, unspecified (5) DNR (do not resuscitate) ICD Code: Z66 - Do not resuscitate Assessment and Plan 1. Sepsis: Temp 101.6, HR 97, Source-UTI. S/p Vanc/Zosyn, Blood Cultures in ER. Continue w/ IV Abx, follow up cultures, IVF for hydration. Lactic Acid normal. CXR w/ no acute findings, images reviewed by me. 11/16 sepsis clinically improving with improving fever, resolving tachycardia. Continue IV cefepime, discontinue vancomycin IV. 11/17 Blood culture is growing staph epidermidis likely a contaminant. Will dc home on Ceftin, 2. UTI: U/a w/ mild bacteriuria/hematuria, presumably source of infection. Continue w/ IV Abx, follow urine/blood cultures. 11/16 blood cultures negative 1, urine cultures no growth in 24 hours. Discontinue IV vancomycin and continue IV cefepime. 3. Encephalopathy: Likely combination of underlying dementia w/ acute infection/sepsis. CT Head w/ no acute intracranial findings, images reviewed by me. Neuro Checks. 11/16 encephalopathy improving. The patient is awake and answer questions. The patient however is oriented to place and time not to person. Continue to monitor neuro checks. 11/17 encephalopathy resolved. 4. Dementia: Resume home Lexapro, Namzaric. Neuro checks as above. PT for eval/tx. 5. DNR: Code Status confirmed and in chart, order placed. 6. DVT Prophylaxis: SCD/Teds. 7. Social work for d/c planning as needed. Remove Carson catheter. Discharge Planning Dc to SNF Problem Qualifiers (1) Dementia: Qualified Codes: F03.90 - Unspecified dementia without behavioral disturbance Сергей Goldberg MD Nov 17, 2017 11:18
[2017-11-17 12:00] VITALS: BP 126/78; PULSE 83; RESP 18; TEMP 97.4; O2SAT 93
[2017-11-17] MEDS ORDERED: CEFU1TAB18 PO (14:28)
--- NOTE | 2017-11-17 14:30 | HHI.DCPOC ---
Discharge Care Plan Diagnosis: (1) UTI (urinary tract infection) (2) Sepsis (3) Dementia (4) DNR (do not resuscitate) (5) Encephalopathy Goals to Promote Your Health * To prevent worsening of your condition and complications * To maintain your health at the optimal level Directions to Meet Your Goals Take your medications as prescribed Follow your dietary instruction Follow activity as directed Keep your appointments as scheduled Take your immunizations and boosters as scheduled If your symptoms worsen call your PCP, if no PCP go to Urgent Care Center or Emergency Room Smoking is Dangerous to Your Health. Avoid second hand smoke Call the 24-hour hour crisis hotline for domestic abuse at Сергей Goldberg MD Nov 17, 2017 14:30
--- NOTE | 2017-11-17 15:30 | HHI.DS ---
Discharge Summary Admission Date Nov 15, 2017 at 20:41 Discharge Date: Nov 17, 2017 Admitting Diagnosis sepsis/altered mental status (1) Sepsis ICD Code: A41.9 - Sepsis, unspecified organism Diagnosis: Principal Status: Resolved (2) UTI (urinary tract infection) ICD Code: N39.0 - Urinary tract infection, site not specified Diagnosis: Principal Status: Acute (3) Dementia ICD Code: F03.90 - Unspecified dementia without behavioral disturbance Diagnosis: Principal Status: Chronic (4) Encephalopathy ICD Code: G93.40 - Encephalopathy, unspecified Diagnosis: Principal (5) DNR (do not resuscitate) ICD Code: Z66 - Do not resuscitate Diagnosis: Principal Brief History - From Admission This is a 78-year-old DNR male with a PMH of Anxiety, Depression, HTN and Dementia who was sent to the ER from SNF secondary to AMS and confusion. Pt unable to provide history due to dementia/AMS, history obtained from records. Per report, pt noted to have Temp 101 by EMS. On arrival, BP 146/83, HR 97, O2 sat 92% on RA, Temp 101.6. CBC unremarkable except for elevated neutrophil count. Chemistry at baseline. Lactic Acid normal. UA positive for bacteriuria and hematuria. CXR with no acute findings. CT Head with no acute intracranial abnormalities, possible mastoiditis. S/p Vanc/Zosyn and Blood Cultures in ER. CBC/BMP: 11/17/17 0534 11/17/17 0534 Significant Findings Laboratory Tests Test 11/15/17 19:20 11/15/17 19:35 11/16/17 06:46 11/16/17 09:45 Neutrophils (%) (Auto) 90.1 % (16.0-70.0) 81.4 % (16.0-70.0) Lymphocytes (%) (Auto) 4.8 % (9.0-44.0) Neutrophils # (Auto) 8.6 TH/MM3 (1.8-7.7) Lymphocytes # (Auto) 0.5 TH/MM3 (1.0-4.8) 0.6 TH/MM3 (1.0-4.8) Blood Urea Nitrogen 22 MG/DL (7-18) 23 MG/DL (7-18) Random Glucose 112 MG/DL (74-106) Calcium Level 8.4 MG/DL (8.5-10.1) 7.9 MG/DL (8.5-10.1) Sodium Level 135 MEQ/L (136-145) Estimat Glomerular Filtration Rate 72 ML/MIN (>89) 81 ML/MIN (>89) Total Creatine Kinase 37 U/L (39-308) Lipase 53 U/L (73-393) Urine Turbidity HAZY (CLEAR) Urine Protein 30 mg/dL (NEG-TRACE) Urine Ketones 40 mg/dL (NEG) Urine Occult Blood MOD (NEG) Urine RBC 12 /hpf (0-3) Urine Bacteria OCC /hpf (NONE) Urine Mucus FEW /lpf (OCC) Hemoglobin 11.9 GM/DL (13.0-17.0) Mean Corpuscular Hemoglobin 25.5 PG (27.0-34.0) Mean Corpuscular Hemoglobin Concent 28.0 % (32.0-36.0) Platelet Count 98 TH/MM3 (150-450) Neutrophils % (Manual) 81 % (16-70) Lymphocytes % 6 % (9-44) Platelet Estimate LOW (NORMAL) Albumin 3.0 GM/DL (3.4-5.0) Test 11/17/17 05:34 11/17/17 08:09 Platelet Count 123 TH/MM3 (150-450) Blood Urea Nitrogen 22 MG/DL (7-18) Calcium Level 7.6 MG/DL (8.5-10.1) Potassium Level 3.0 MEQ/L (3.5-5.1) Vancomycin Level Trough 12.4 MCG/ML (5.0-10.0) Imaging Last Impressions Head CT 11/15/171924 Signed Impressions: Service Date/Time: Wednesday, November 15, 2017 19:47 - CONCLUSION: 1. No acute intracranial abnormality demonstrated. 2. Atrophy and chronic white matter changes. 3. Possible mastoiditis on the right in the proper clinical setting. Dayne Chen MD Chest X-Ray 11/15/171924 Signed Impressions: Service Date/Time: Wednesday, November 15, 2017 19:39 - CONCLUSION: No acute cardiopulmonary disease demonstrated. Tortuous, potentially aneurysmal thoracic aorta. Dayne Chen MD PE at Discharge GENERAL: Elderly white male in no acute distress. Lethargic, confused. Opens eyes to name HEENT: PERRLA, EOMI. No scleral icterus or conjunctival pallor. No lid lag or facial droop. CARDIOVASCULAR: Regular rate and rhythm. No obvious murmurs to auscultation. No chest tenderness to palpation. RESPIRATORY: No obvious rhonchi or wheezing. Clear to auscultation. Breath sounds equal bilaterally. GASTROINTESTINAL: Abdomen soft, non-tender, nondistended. BS normal. MUSCULOSKELETAL: Extremities without clubbing, cyanosis, or edema. No obvious deformities. NEUROLOGICAL: awake and alert x2. No focal neurologic deficits. Moving both upper and lower extremities spontaneously. Pt update on day of discharge PAtint afebrile, sepsis resolved, no evidence of mastoiditis or ear discharge. Pt Condition on Discharge: Stable Discharge Disposition: Discharge to SNF Discharge Time: > 30 minutes Discharge Instructions DIET: Follow Instructions for: As Tolerated, No Restrictions Activities you can perform: See Additionl Instruction Other Activity Instructions: out of bed with assistance. As per PT instructions Follow up Referrals: PCP Follow-up - 2 Weeks New Medications: Cefuroxime (Ceftin) 250 Mg Tab 250 MG PO BID for Infection, #14 TAB Continued Medications: Acetaminophen (Tylenol) 325 Mg Tab 325 MG PO Q4H PRN for PAIN 1 TO 10 AND/OR AGITATION, TAB [address] (Aspir-81) 81 Mg Tabdr Bisacodyl Supp (Dulcolax Supp) 10 Mg Supp 10 MG RECTAL DAILY PRN for CONSTIPATION, #12 SUPP 0 Refills Cholecalciferol (Vitamin D3) 1,000 Unit Tab 1000 UNITS PO DAILY for Nutritional Supplement, #1 BOTTLE 0 Refills Escitalopram (Lexapro) 10 Mg Tab 10 MG PO DAILY, #30 TAB 0 Refills Glucagon (Rdna) Inj Kit (Glucagen Hypokit Inj Kit) 1 Mg Kit 1 MG IM ONCE PRN for Blood Sugar Management, #1 KIT 0 Refills Levothyroxine (Synthroid) 25 Mcg Tab 25 MCG PO DAILY for Thyroid, #30 TAB 0 Refills Loperamide (Loperamide) 2 Mg Cap 2 MG PO DIRECTED PRN for DIARRHEA, CAP 0 Refills One capsule after each loose stool. Not to exceed 8 capsules per day. Magnesium Hydroxide Liq (Milk of Magnesia Liq) 400 Mg/5 Ml Susp 30 ML PO ONCE for Indigestion, #30 ML 0 Refills Memantine-Donepezil (Namzaric) 28-10 Mg Cap 1 CAP PO HS for Alzheimer Dementia, #30 CAP 0 Refills Potassium Chloride ER (Potassium Chloride ER) 10 Meq Cap 10 MEQ PO DAILY for Electrolyte Replacement, #30 CAP 0 Refills Сергей Goldberg MD Nov 17, 2017 15:30
[2017-11-17 16:00] VITALS: BP 114/72; PULSE 81; RESP 17; TEMP 98.7; O2SAT 93
== END 2017-11-17 17:33 | DRG 871 ==
LOC: NEPE 18:52 → NEDA 20:41 → N07B 21:23
PROVIDERS: ADMIT Hospitalist; ATTEND Hospitalist
DX: A41.9 Sepsis, unspecified organism (principal); G93.40 Encephalopathy, unspecified; N39.0 Urinary tract infection, site not specified; F03.90 Unspecified dementia, unspecified severity, without behavioral disturbance, psychotic disturbance, mood disturbance, and anxiety; I10 Essential (primary) hypertension; F32.9 Major depressive disorder, single episode, unspecified; F41.9 Anxiety disorder, unspecified; Z66 Do not resuscitate
CPT/HCPCS: 70450; 71045; 80048; 80053; 80202; 81001; 82550; 83605; 83690; 83735; 84484; 85007; 85025; 85027; 87040; 87086; 87186; 87205; 87804; 93005; 96365; 96368; J0692; J2543; J3370; J7030; J7050